=== PATIENT | male | born 1995 | race Caucasian/White ===

== ENCOUNTER 2016-10-21 22:47 | Emergency (ER) | payer OTHER ==
[~2016-10-21] VITALS: Ht 195.6 cm; Wt 131.8 kg
[2016-10-21 22:50] VITALS: BP 167/117; PULSE 68; RESP 19; O2SAT 99
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
[2016-10-21] MEDS ORDERED: Ondansetron 8 mg ODT Tablet PO ONE (23:15)
[2016-10-21 23:26] VITALS: BP 148/100; PULSE 79; RESP 16; O2SAT 96
== END 2016-10-22 00:03 | disposition home or self-care (01) ==
LOC: SED 22:47
DX: S16.1XXA Strain of muscle, fascia and tendon at neck level, initial encounter (principal); V43.52XA Car driver injured in collision with other type car in traffic accident, initial encounter; Y93.89 Activity, other specified; Y92.410 Unspecified street and highway as the place of occurrence of the external cause; Y99.8 Other external cause status; I10 Essential (primary) hypertension; R42 Dizziness and giddiness; R11.0 Nausea; Z88.0 Allergy status to penicillin